=== PATIENT | male | born 1955 | race American Indian/Alaskan Native ===

== ENCOUNTER 2022-05-22 10:21 | Emergency (ER) | payer SELFPAY ==
[2022-05-22 10:47] VITALS: BP 170/98
--- NOTE | 2022-05-22 11:21 | XRay Report ---
CHEST 2 VIEWS INDICATION / CLINICAL INFORMATION: chest pain STUDY TIME: 1113 COMPARISON: None available. FINDINGS: SUPPORT DEVICES: None. HEART / MEDIASTINUM: No significant abnormality. LUNGS / PLEURA: No significant acute pulmonary or pleural abnormality. No pneumothorax. ADDITIONAL FINDINGS: No significant additional findings. Signer Name: Van Barahona MD Signed: 05/22/2022 11:17 AM Workstation Name: [employer]
[2022-05-22 12:25] LABS: Hematocrit 38.2 % (35.5-45.6); Hemoglobin 13.1 gm/dl (11.8-15.2); Mean Corpuscular HGB Conc 34 % (32-34); Mean Corpuscular Volume 87 fl (84-94); Platelet Count 176 K/mm3 (140-440); Red Blood Count 4.39 M/mm3 (3.65-5.03); Red Cell Distribution Width 14.2 % (13.2-15.2)
[2022-05-22 12:42] LABS: Alanine Aminotransferase 14 units/L (7-56); Albumin 4.7 g/dL (3.9-5); BUN/Creatinine Ratio 11; Blood Urea Nitrogen 19 mg/dL (9-20); Calcium 9.8 mg/dL (8.4-10.2); Hemolysis Index 14
[2022-05-22 13:22] LABS: Basophils % (Manual) 0 % (0.0-1.8); Total Cells Counted 100
[2022-05-22 13:23] LABS: Anisocytosis 1+; Platelet Estimate Consistent w Auto
--- NOTE | 2022-05-25 12:12 | Electrocardiograph Report ---
[facility] Test Date: 2022-05-22 Test Time: 10:54:42 Pat Name: PRANEETH MARRERO Department: Room: Gender: M Professor Of Law: CATARINA : 1955 Requested By: ED DOC Order Number: [id number] Reading MD: Vasquez Pereira Measurements Intervals [place] Rate: 87 P: 68 NC: 142 QRS: -24 QRSD: 100 T: 41 QT: 331 QTc: 387 Interpretive Statements Sinus rhythm Ventricular premature complex No previous ECG available for comparison Electronically Signed On 05-25-2022 9:12:37 PDT by Vasquez Pereira
== END 2022-05-23 14:43 | disposition left against medical advice (07) ==
LOC: ED 10:21
DX: R07.9 Chest pain, unspecified (principal); Z53.21 Procedure and treatment not carried out due to patient leaving prior to being seen by health care provider
CPT/HCPCS: 36415; 71046; 80053; 84484; 85007; 85025; 93005